=== PATIENT | male | born 1965 | race Caucasian/White ===

== ENCOUNTER → 2020-07-19 | Outpatient (CLI) | payer OTHER ==
[~2020-07-19] MED LIST: HUMIRA40 MG/0.8 MR; NEURONTIN300 MG/CAP PO; NEXIUM 40MG40 MG PO; NORCO 325 MG-51 TAB PO
== END ==
LOC: MHCPAIN 12:34
DX: M47.817 Spondylosis without myelopathy or radiculopathy, lumbosacral region (principal); M54.5 Low back pain; M53.3 Sacrococcygeal disorders, not elsewhere classified; M96.1 Postlaminectomy syndrome, not elsewhere classified; M54.16 Radiculopathy, lumbar region
CPT/HCPCS: G0463

== ENCOUNTER → 2020-07-22 | Outpatient (CLI) | payer OTHER | LOC: MHCPAIN 14:14 | DX: M47.817 Spondylosis without myelopathy or radiculopathy, lumbosacral region (principal); M54.16 Radiculopathy, lumbar region | CPT/HCPCS: J1100; Q9967 ==

== ENCOUNTER → 2020-08-10 | Outpatient (CLI) | payer OTHER | LOC: MHCPAIN 15:08 | DX: M47.817 Spondylosis without myelopathy or radiculopathy, lumbosacral region (principal); M54.5 Low back pain; M53.3 Sacrococcygeal disorders, not elsewhere classified; M96.1 Postlaminectomy syndrome, not elsewhere classified; M54.16 Radiculopathy, lumbar region | CPT/HCPCS: G0463 ==

== ENCOUNTER 2024-01-07 11:37 | Day surgery (SDC) | payer MEDICARE, OTHER ==
[~2024-01-07] VITALS: Ht 180.3 cm; Wt 93.6 kg
[~2024-01-07 11:37] MED LIST changes: +ASPIRIN 81M81 MG/TA2 PO; +CYMBALTA 60MG60 MG PO; +DESYREL 100MG100 MG PO; +LAMICTAL 100MG100 MG PO; +LIPITOR20 MG PO; +MOBIC15 MG PO; +NEURONTIN400 MG/CAP PO; +PRIL40 PO; +PYRIDIUM 100MG100 MG PO; +REMERON 15M15 MG/TA1 PO; +REMICADE V100 MG/VIA IV; +REQUIP 0.5MG0.5 MG PO; +ROXICODONE 55 MG/TAB PO; +VIAGRA100 M1 PO; +VITAMIN D250 MCG PO
[2024-01-07] MEDS ORDERED: Morphine 4 MG/ML VIAL IV PRN (11:45)
[2024-01-07] MEDS ORDERED: Morphine 4 MG/ML VIAL IV ONE (11:45)
--- NOTE | 2024-01-07 11:45 | NUR ---
PATIENT ADMITTED TO ROOM 8 AMBULATORY AND IS ALERT AND ORIENTED X3. PATIENT VOICES UNDERSTANDING OF SURGERY AND CONSENT SIGNED. STATES HAS HAD PRIOR KIDNEY STONE REMOVALS.
[2024-01-07] MEDS ORDERED: LR 1,000 ML IV SCH (12:00)
[2024-01-07] MEDS ORDERED: Ketorolac 15 MG/ML VIAL IV PRN (12:00)
[2024-01-07] MEDS ORDERED: NS 1,000 ML IV SCH (12:00)
[2024-01-07] MEDS ORDERED: Ondansetron 4 MG/2 ML VIAL IV PRN ×3 (12:00→17:45)
--- NOTE | 2024-01-07 12:30 | NUR ---
PATIENT HAS BEEN RATING PAIN AT 4-5/10. MEDICATED WITH MORPHINE 5MG IV AND TORADOL 15MG IV. PLACED ON PULSE OXIMETRY AT SATS 92-94%. WILL CONTINUE TO MONITOR.
[2024-01-07 12:49] VITALS: BP 146/86; PULSE 71; TEMP 97.8
--- NOTE | 2024-01-07 13:07 | NUR ---
RESTING WITH EYES CLOSED. SATS MAINTAIN 92%.
--- NOTE | 2024-01-07 13:18 | NUR ---
O2 SAT 90% WHEN LAYING ON THE RIGHT SIDE. OXYGEN PLACED ON @ 2L PER NASAL CANNULA. WILL CONTINUE TO MONITOR.
--- NOTE | 2024-01-07 14:02 | NUR ---
OXYGEN SATURATIONS NOW 95% WHEN RESTING WITH EYES CLOSED. SPOUSE IN ROOM. CALL LIGHT IN REACH. AWAIT SURGERY.
--- NOTE | 2024-01-07 15:23 | NUR ---
PATIENT CONTINUES TO REST WITH EYES CLOSED WITH OXYGEN ON @ 2L NASAL CANNULA. NO FURTHER COMPLAINTS OF PAIN.
--- NOTE | 2024-01-07 15:38 | NUR ---
REPORT GIVEN TO CIARA BARON. PATIENT CONTINUES TO REST WITH SPOUSE AT BEDSIDE.
--- NOTE | 2024-01-07 16:49 | NUR ---
1538: ACQUIRED CARE AT THIS TIME. REPORT RECEIVED FROM TOD DASILVA. 1630: PATIENT RESTING IN COT WITH EYES OPEN. NO C/O AT THIS TIME. AT BEDSIDE. CALL LIGHT IN REACH.
[2024-01-07] MEDS ORDERED: hydrALAZINE 20 MG/ML 1 ML VIAL IV PRN (17:00)
[2024-01-07] MEDS ORDERED: fentaNYL 50 MCG/ML 2 ML VIAL IV PRN (17:00)
[2024-01-07] MEDS ORDERED: Meperidine 50 MG/ML 1 ML VIAL IV PRN (17:00)
[2024-01-07] MEDS ORDERED: HYDROmorphone 2 MG/1 ML VIAL IV PRN (17:00)
--- NOTE | 2024-01-07 17:14 | NUR ---
1710: PATIENT TO OR AT THIS TIME.
[2024-01-07] MEDS ORDERED: Iohexol 300 - 10 ML VIAL URETER-R ONE (17:25)
[2024-01-07] MEDS ORDERED: Lidocaine 2% (20 MG/ML) 20 ML UROJET UR ONE (17:37)
[2024-01-07] MEDS ORDERED: Hyoscyamine 0.125 MG Sublingual TAB SL PRN (17:45)
[2024-01-07] MEDS ORDERED: Naloxone 0.4 MG/ML VIAL IV PRN (17:45)
[2024-01-07] MEDS ORDERED: Acetaminophen 325 MG TAB PO PRN (17:45)
[2024-01-07 18:28] VITALS: BP 125/80; PULSE 71; TEMP 98.7
--- NOTE | 2024-01-07 18:29 | NUR ---
PT TO ROOM 343, VSS, REPORT FROM [employer] TE[employer]ER @1013. PT IS A/O X4, LUNGS CTA, STENTS PLACED AND LASER STONE ABLATION COMPLETED.
[2024-01-07 18:45] VITALS: BP 127/83; PULSE 67
[2024-01-07 19:00] VITALS: BP 110/81; PULSE 71
--- NOTE | 2024-01-07 19:11 | NUR ---
report received from precious noriega. pt resting in bed with at bedside. post op vitals continue wnl. pt denies pain. call light in reach. all needs met at this time.
[2024-01-07 19:15] VITALS: BP 122/84; PULSE 65
[2024-01-07 19:45] VITALS: BP 128/94; PULSE 76
--- NOTE | 2024-01-07 20:16 | NUR ---
shift assessment complete, see documentation. discharge instructions provided. pt education given. iv dc'd. f/u appt discussed. medications reviewed. pt denies questions or concerns. pt escorted out with belongings.
== END 2024-01-07 20:06 | disposition home or self-care (01) ==
LOC: SDCO 11:37 → INPTSU 11:53 → SDCO 16:30 → SURG 18:25 → SDCO 20:06
DX: N13.2 Hydronephrosis with renal and ureteral calculous obstruction (principal); G47.33 Obstructive sleep apnea (adult) (pediatric); F17.210 Nicotine dependence, cigarettes, uncomplicated; Z96.82 Presence of neurostimulator; Z85.46 Personal history of malignant neoplasm of prostate
CPT/HCPCS: OP; C1769; C2617; J1885; J2270; J7030; Q9967

== ENCOUNTER → 2024-05-27 | Outpatient (CLI) | payer OTHER | LOC: MHCPAIN 08:40 | DX: M47.812 Spondylosis without myelopathy or radiculopathy, cervical region (principal); M48.02 Spinal stenosis, cervical region | CPT/HCPCS: G0463 ==